=== PATIENT | female | born 2000 | race Two or more races ===

== ENCOUNTER 2023-12-13 10:18 | Emergency (ER) | payer OTHER, SELFPAY ==
[2023-12-13 10:24] VITALS: BP 147/71; PULSE 77; RESP 16; TEMP 36.6; O2SAT 100; BMI 27.9
[2023-12-13 11:01] LABS: IDNOW Serial# 08D9AD1C; Strep A Nucleic Acid Negative (Negative)
--- NOTE | 2023-12-13 11:14 | ED_ITS ---
HPI - General Adult General Chief complaint: General Medical Stated complaint: Sore throat Time Seen by Provider: 12/13/23 11:00 Source: patient Mode of arrival: ambulatory Limitations: no limitations History of Present Illness HPI narrative: 23-year-old female presents the ER for evaluation of sore throat and swollen tonsils for the last 3 or 4 days. She states it has been getting worse. She feels like her left tonsil is more swollen than her right. The pain extends to her left ear. She is able to drink normally although it does hurt to swallow. No fevers or known sick contacts at home. No changes in her voice or difficulty handling secretions. No shortness of breath, chest pain, nausea, vomiting, diarrhea, abdominal pain. She has had decreased appetite overall and some body aches. MD complaint: Sore throat Onset (ago): day(s) (4) Location: head, face and mouth Severity: moderate Severity scale (1-10): 6 Quality: stabbing and sharp Pain Consistency: constant Relieving factors: medication and rest Exacerbating factors: eating Associated symptoms: cough, headaches, loss of appetite and malaise Treatments prior to arrival: none Related Data Previous Rx's ?Medication ?Instructions ?Recorded amoxicillin 875 mg-potassium 1 tab PO BID #20 tabs 12/13/23 clavulanate 125 mg tablet Allergies Allergy/AdvReac Type Severity Reaction Status Date / Time No Known Allergies Allergy Verified 12/13/23 10:25 Review of Systems Review of Systems: Yes all other systems are reviewed and are negative PMFSH Social History Social History Advance Directives: No Do you have a plan to hurt others: No Plan Physical Exam ED Vital Signs: Vital Signs - 24 hr 12/13/23 10:24 Temperature 97.8 F Pulse Rate 77 Respiratory Rate 16 Blood Pressure 147/71 H Pulse Oximetry 100 Oxygen Delivery Method Room Air BMI result Body Mass Index 27.9 Appearance: Alert. Oriented X3. No acute distress. Head: normocephalic, atraumatic. Eyes: Pupils equal, round and reactive to light. ENT: Pharynx normal. +tonsillar, erythema, swelling & exudates bilaterally. uvula midline. handling secretions normally. normal voice. normal TMs bilaterally. Neck: Normal inspection. Neck supple. No lymphadenopathy CVS: Normal heart rate and rhythm. Pulses normal. Respiratory: No respiratory distress. Breath sounds normal. Abdomen: Soft and nontender. +BS x4 Skin: Skin warm and dry. Normal skin color. Normal skin turgor. No rashes. Extremities: No lower extremity edema. No joint swelling. Neuro/psych: Oriented X 3. No motor deficit. No sensory deficit. CN II-XII intact. Normal speech and cognition. Medical Decision Making Medical Decision Making [facility] Narrative: 23-year-old female presents to the ER for evaluation of sore throat for the last 4 days. She feels like her left tonsil is more swollen than her right. On examination both tonsils have diffuse exudates and erythema. Her uvula is midline. No evidence of peritonsillar abscess. Low suspicion for retropharyngeal abscess. Her voice is normal. She is nontoxic and handling her secretions normally. She is afebrile here, saturating 100% on room air. No need for CT scan of her neck today. patient tested negative for strep throat. Given her examination findings will start her on empiric antibiotics. She was counseled on management and return precautions. Stable for discharge home. Differential Diagnosis Differential Diagnoses: The differential diagnosis associated with the presentation includes strep, covid, flu, rsv, other viral syndrome, bronchitis, pneumonia, no evidence of peritonsillar abcsess or retropharyngeal abscess Lab Data [facility] Lab Attestation statement: I reviewed the patient's lab results. Labs: Lab Results 12/13/23 Range/Units 10:30 S. pyogenes GrpA CARYN Negative (Negative) Independent Historian Clinical information obtained from an independent historian. History obtained from or confirmed by: Other ( Significant other) Tests considered The following testing was considered but not selected: CT scan of the soft tissues of the neck were considered to evaluate for possible peritonsillar abscess however clinical exam was reassuring Prescription Management I considered prescription management with: Pain Medication and Antibiotic Critical Care Time Critical Care Time Critical Care Time: No Discharge Plan Discharge Clinical Impression: Acute tonsillitis Qualifiers: Pharyngitis/tonsillitis etiology: unspecified etiology Qualified Code(s): J03.90 - Acute tonsillitis, unspecified Patient Disposition: Home, Self-Care Instructions: Tonsillitis (ED) Additional Instructions: Take the prescribed antibiotics as directed, complete the entire course and do not miss any doses Use warm salt water gargles 3 times per day Recommend Chloraseptic spray or Cepacol lozenges for sore throat Take tylenol 1000 mg every 6 hours for pain Rest and drink plenty of fluids If you develop new or worsening symptoms call 911 or come back to the ER for further evaluation. Prescriptions: New amoxicillin-pot clavulanate 875-125 mg tablet 1 tab PO BID Qty: 20 0RF Print Language: Maltese
[2023-12-13 12:00] VITALS: BP 122/55; PULSE 69; RESP 18; TEMP -17.7; TEMP 0; O2SAT 100
== END 2023-12-13 12:02 | disposition home or self-care (01) ==
PROVIDERS: Emergency Provider Emergency Medicine
DX: J03.90 Acute tonsillitis, unspecified (principal); R05.9 Cough, unspecified; R51.9 Headache, unspecified; R53.81 Other malaise
CPT/HCPCS: 87651; 99283; 99284

== ENCOUNTER 2024-02-10 17:59 | Emergency (ER) | payer OTHER, SELFPAY ==
[2024-02-10 18:27] VITALS: BP 124/70; PULSE 106; RESP 16; TEMP 39.5; O2SAT 98; BMI 28.3
[2024-02-10] MEDS: Acetaminophen 325 MG TABLET 975 MG PO (18:34)
[2024-02-10 19:02] LABS: IDNOW Serial# 08D9AD1C
[2024-02-10 19:03] LABS: Strep A Nucleic Acid Negative (Negative)
[2024-02-10 19:31] LABS: Influenza A PCR NEGATIVE (Negative); Influenza B PCR NEGATIVE (Negative); Resp Syncy Virus RNA Qual PCR NEGATIVE (Negative); SARS COV2 PCR INHOUSE NEGATIVE (Negative)
--- NOTE | 2024-02-10 20:09 | ED_ITS ---
HPI - Female Genitourinary General Chief complaint: Urogenital-Female Stated complaint: sore throat + std check Time Seen by Provider: 02/10/24 19:55 Source: patient Mode of arrival: ambulatory Limitations: no limitations History of Present Illness ED Provider: celeste DURHAM Narrative: Patient currently sore throat congested for last few days has in new relationship possible partner has gonorrhea patient denied any urinary symptoms no fever no chills no vaginal discharge Related Data Previous Rx's ?Medication ?Instructions ?Recorded amoxicillin 875 mg-potassium 1 tab PO BID #20 tabs 12/13/23 clavulanate 125 mg tablet cefuroxime axetil 500 mg tablet 500 mg PO BID 7 days #14 tabs 02/10/24 Allergies Allergy/AdvReac Type Severity Reaction Status Date / Time No Known Allergies Allergy Verified 02/10/24 18:29 Review of Systems Review of Systems: Yes all other systems are reviewed and are negative [facility] Social History Social History Alcohol intake: current Alcohol intake frequency: a few times a week Smoked in Last 30 Days: Yes Use of substances other than those prescribed or required for medical reasons: No Substance Use Type: Marijuana Advance Directives: No Advance Directives Information Provided: No Do you have a plan to hurt others: No Plan Patient : No Physical Exam Vital Signs: Vital Signs: Last Vital Signs Temp 98.3 F 02/10/24 21:09 Pulse 83 02/10/24 21:09 Resp 16 02/10/24 21:09 BP 121/74 02/10/24 21:09 Pulse Ox 98 02/10/24 21:09 O2 Del Method Room Air 02/10/24 21:09 BMI result Body Mass Index 28.3 Appearance: Alert. Oriented X3. No acute distress. Eyes: PERRLA, No Nystagmus ENT: Pharynx erythematous with exudates Oral Mucosa moist Neck: Normal inspection. Neck supple. CVS: Normal heart rate and rhythm. Pulses normal. Respiratory: No respiratory distress. Equal air entry bilateral, no wheezing/rales/rhonchi Abdomen: Soft and nontender. Bowel sounds are present, no CVA tenderness Skin: Skin warm and dry. Normal skin color. Normal skin turgor. Extremities: No lower extremity edema. No calf tenderness Neuro: Oriented X 3. Medications Administered Discontinued Medications Generic Name Dose Route Start Last Admin Trade Name Yared PRN Reason Stop Dose Admin Acetaminophen 975 mg 02/10/24 18:31 02/10/24 18:34 Acetaminophen 325 Mg Tablet PO 02/10/24 18:32 975 mg ONCE ONE Administration Cefuroxime Axetil 500 mg 02/10/24 20:09 02/10/24 21:07 Cefuroxime Axetil 500 Mg Tablet PO 02/10/24 20:10 500 mg ONCE ONE Administration Medical Decision Making Medical Decision Making [facility] Narrative: Patient has acute pharyngitis UTI Ceftin was prescribed , patient's discharge to follow with the report but at the end of my shift GC came positive in the urine patient was called to come back for treatment for GC Patient will be given Rocephin 500 mg IM Differential Diagnosis Differential Diagnoses: The differential diagnosis associated with the presentation includes Acute pharyngitis/gonorrhea/strep throat Lab Data [facility] Lab Attestation statement: I reviewed the patient's lab results. Labs: Lab Results 02/10/24 02/10/24 Range/Units 18:48 20:39 Urine Color RED Urine Appearance Turbid Urine pH 6.5 (5.0-9.0) Ur Specific [place] 1.015 (1.005-1.025) Urine Protein 300 (3+) H (Neg-Trace) mg/dL Urine Glucose (UA) Negative (Negative) mg/dL Urine Ketones 40 (Negative) mg/dL Urine Blood Moderate (2+) H (Negative) Urine Nitrite Positive H (Negative) Ur Leukocyte Esterase Large (3+) H (Negative) Urine RBC 11-20 H (0-2) /HPF Urine WBC 6-10 H (0-5) /HPF Ur Squamous Epith Cells 6-10 (0-2) /HPF Urine Bacteria 2+ (None Seen) Hyaline Casts 0-2 (0-2) /LPF Chlam trachomat DNA PCR NOT DETECTED (Not Detect.) Influenza Type A (PCR) NEGATIVE (Negative) Influenza Type B (PCR) NEGATIVE (Negative) N.gonorrhoeae DNA (PCR) DETECTED A (Not Detect.) RSV RNA Qual (PCR) NEGATIVE (Negative) SARS-CoV-2 RNA (RT-PCR) NEGATIVE (Negative) S. pyogenes GrpA CARYN Negative (Negative) Discharge Plan Discharge Clinical Impression: Acute bacterial pharyngitis, UTI (urinary tract infection), Gonorrhea Patient Disposition: Home, Self-Care Instructions: Gonorrhea (ED), Urinary Tract Infection in Women (DC), Pharyngitis (ED) Additional Instructions: Take antibiotic as prescribed Your urine report will be back tomorrow will inform you about if any positive Prescriptions: New cefuroxime axetil 500 mg tablet 500 mg PO BID 7 Days Qty: 14 0RF No Action amoxicillin-pot clavulanate 875-125 mg tablet 1 tab PO BID Qty: 20 0RF Interventions: ED Discharge Assessment Last Done: 02/10/24 21:09 Discharge Date/Time: 02/10/24 21:09 Print Language: Sinhala
[2024-02-10 20:58] LABS: Appearance Urine Turbid; Color Urine RED; Glucose Urine UA Negative (Negative); Leukocyte Esterase Urine Large (3+) (Negative); Nitrite Urine Positive (Negative); PH 6.5 (5.0-9.0); Specific Gravity - Urine 1.015 (1.005-1.025); UMIC TRIGGER UACC YES; Urine Blood Moderate (2+) (Negative); Urine Ketones 40 mg/dL (Negative); Urine Protein 300 (3+) mg/dL (Neg-Trace)
[2024-02-10 21:04] VITALS: BP 121/74; PULSE 83; RESP 16; TEMP 36.8; O2SAT 98
[2024-02-10 21:06] LABS: Bacteria Urine 2+ (None Seen); Hyaline Casts Urine 0-2 /LPF (0-2); UACC Culture Trigger YES
[2024-02-10] MEDS: cefuroxime axetiL 500 MG TABLET PO (21:07)
[2024-02-10 21:09] VITALS: BP 121/74; PULSE 83; RESP 16; TEMP 36.8; O2SAT 98
[2024-02-11 01:29] LABS: CT PCR NOT DETECTED (Not Detect.); NG PCR DETECTED (Not Detect.)
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
== END 2024-02-10 21:09 | disposition home or self-care (01) ==
PROVIDERS: Emergency Provider Internal Medicine
DX: N39.0 Urinary tract infection, site not specified (principal); A54.9 Gonococcal infection, unspecified; J02.9 Acute pharyngitis, unspecified; Z03.818 Encounter for observation for suspected exposure to other biological agents ruled out
CPT/HCPCS: 0241U; 0353U; 81001; 81003; 87086; 87147; 87651; 99283; 99284

== ENCOUNTER 2024-02-11 09:07 | Emergency (ER) | payer OTHER, SELFPAY ==
[2024-02-11 09:12] VITALS: BP 124/57; PULSE 104; RESP 18; TEMP 36.4; O2SAT 98; BMI 27.8
--- NOTE | 2024-02-11 09:35 | ED.GENADULT ---
HPI - General Adult General Chief complaint: General Medical Stated complaint: Abnormal labs told to come back Time Seen by Provider: 02/11/24 09:19 Source: patient Mode of arrival: ambulatory Limitations: no limitations History of Present Illness HPI narrative: 23-year-old female with no significant past medical history presents to emergency department for further evaluation for dysuria and headache. She reports she was sent home with antibiotics and called earlier today to return for an injection of antibiotics if she has positive for an STI. She states she picked up the antibiotics this morning but has not started the med yet. She denies any fevers, chills but reports she feels generally unwell. Pertinent positives and negatives discussed in HPI Related Data Previous Rx's ?Medication ?Instructions ?Recorded amoxicillin 875 mg-potassium 1 tab PO BID #20 tabs 12/13/23 clavulanate 125 mg tablet cefuroxime axetil 500 mg tablet 500 mg PO BID 7 days #14 tabs 02/10/24 Allergies Allergy/AdvReac Type Severity Reaction Status Date / Time No Known Allergies Allergy Verified 02/11/24 09:15 Review of Systems Review of Systems: Yes all other systems are reviewed and are negative [facility] Social History Social History Alcohol intake: current Alcohol intake frequency: a few times a week Substance Use Type: Marijuana Advance Directives: No Advance Directives Information Provided: Yes Do you have a plan to hurt others: No Plan Physical Exam ED Vital Signs: Vital Signs - 24 hr 02/11/24 09:12 02/11/24 09:49 Temperature 97.5 F 97.5 F Pulse Rate 104 H 104 H Respiratory Rate 18 18 Blood Pressure 124/57 L 124/57 L Pulse Oximetry 98 98 Oxygen Delivery Method Room Air Room Air BMI result Body Mass Index 27.8 Nursing notes and vital signs reviewed. GENERAL APPEARANCE: A&0 x 4, generally well appearing, no acute distress HENMT: Normal to inspection, atraumatic, face symmetrical. Normal external ears, nose, and oropharynx clear. EYE: PERRLA, EOM intact, structures appear normal NECK: Supple without stiffness or restricted ROM. HEART: Normal rate and regular rhythm, normal S1/S2, no M/R/G LUNGS: LS CTA, moving air well. Able to speak in complete sentences. No crackles, wheezes, or rhonchi auscultated BACK: No CVAT, no obvious deformity EXTREMITIES: Moving all extremities without difficulty. Normal capillary refill. NEUROLOGICAL: Alert and oriented, moving all 4 extremities with equal strength. CN not formally tested but appearing grossly intact. Observed to ambulate with normal gait. Cognition normal SKIN: Warm and dry without any lesions, rash, or visible sores Medications Administered Discontinued Medications Generic Name Dose Route Start Last Admin Trade Name Freq PRN Reason Stop Dose Admin Ceftriaxone Sodium 500 mg/ 0 mg 02/11/24 09:23 02/11/24 09:46 Lidocaine HCl 1 ml IM 02/11/24 09:24 1 kit ONCE ONE Administration Medical Decision Making Medical Decision Making [facility] Narrative: Old records reviewed for previous imaging, lab studies, ECGs, and notes and urine showing evidence of acute UTI with serology positive for gonorrhea negative for chlamydia. Patient was assessed the emergency department with no acute distress or toxicity noted. 500 mg IM ceftriaxone ordered for treatment of gonorrhea and patient educated to continue previously prescribed ceftriaxone for further management of urinary tract infection. Patient is safe for discharge at this time with plan for [id number] Tylenol and/or NSAID such as ibuprofen or naproxen for fever/discomfort with dosing as per packaging. HPI, PE, diagnostics, and plan discussed with patient and family with no unanswered questions at this time. Strict return precautions given to return to the emergency department with new, worsening, or concerning emergent symptoms. Recommended to follow-up with there primary care provider in 24-48 hours for further treatment and management. Differential Diagnosis Differential Diagnoses: The differential diagnosis associated with the presentation includes But not limited to UTI, cystitis, pyelonephritis, nephrolithiasis, STI, sepsis, malignancy Lab Data [facility] Lab Attestation statement: I reviewed the patient's lab results. CT NG positive for gonorrhea Discharge Plan Discharge Clinical Impression: Gonorrhea, UTI (urinary tract infection) Patient Disposition: Home, Self-Care Instructions: Gonorrhea (ED), Urinary Tract Infection in Women (ED) Additional Instructions: Your seen in the emergency department for an antibiotic injection for gonorrhea. Your test results from yesterday were reviewed and there is evidence for urinary tract infection in addition to this sexually transmitted infection. Please continue previously prescribed antibiotics You are safe for discharge at this time with plan for management of fever or discomfort with [id number] Tylenol and/or NSAID such as ibuprofen or naproxen with dosing as per packaging. Please return to the emergency department with new, worsening, or concerning emergent symptoms. Recommended to follow-up with your primary care provider in 24-48 hours for further treatment and management. [facility] Prescriptions: No Action amoxicillin-pot clavulanate 875-125 mg tablet 1 tab PO BID Qty: 20 0RF cefuroxime axetil 500 mg tablet 500 mg PO BID 7 Days Qty: 14 0RF Referrals: [facility] [place] Group] [facility] [facility] [place] [facility]] Stand Alone Forms: Work/School Release Interventions: ED Discharge Assessment Last Done: 02/11/24 09:49 Discharge Date/Time: 02/11/24 09:49 Print Language: Sammarinese
[2024-02-11] MEDS: cefTRIAXone sodium 500 MG, Lidocaine HCl 1 % MPF 1 ML IM (09:46)
--- NOTE | 2024-02-11 09:48 | PC.NURSE ---
pt medicated per order
[2024-02-11 09:49] VITALS: BP 124/57; PULSE 104; RESP 18; TEMP 36.4; O2SAT 98
== END 2024-02-11 09:49 | disposition home or self-care (01) ==
PROVIDERS: Emergency Provider Emergency Medicine
DX: N39.0 Urinary tract infection, site not specified (principal); A54.9 Gonococcal infection, unspecified; R30.0 Dysuria; R79.89 Other specified abnormal findings of blood chemistry; R51.9 Headache, unspecified
CPT/HCPCS: 96372; 99282; 99284; J0696